=== PATIENT | male | born 1985 | race African-American/Black ===

== ENCOUNTER 2016-09-22 18:13 | Inpatient (IN) | payer SELFPAY ==
[~2016-09-22] VITALS: Ht 185.4 cm; Wt 74.4 kg
--- NOTE | 2016-09-24 08:34 | HP ---
ADMIT: 09/22/2016 RM/LOC: 426 [facility] MR#: [id number] [address] [address] JOSÉ MANUEL ASHBY [place] [address] History and Physical SEX: M AGE: 31 : 1985 DATE OF SERVICE: CHIEF COMPLAINT AND HISTORY OF PRESENT ILLNESS: José Manuel Ashby is seen in the emergency room on september 22 and eventually admitted to acute care. City call basis, he is a fairly uncooperative historian, not volunteering information during our interview. At times, simply refusing to answer the question. Apparently when he presented to the emergency room on September 22, he acknowledged feeling poorly for unspecified period of time. He tells me he has had fevers for several weeks and has experienced a 30-pounds weight loss over the last 2 months. At various times, he told me, he was from [place] or [place]. At various times, he told old me he was unemployed or worked at [employer]. Did acknowledge cough. He acknowledged hurting all over, really did not localize any specific pain. That was about the extend of any history I could obtain from him as far as symptoms go. He was first seen in the emergency room by Dr. Howell and Dr. Higginbotham. His lab work there was significant and that his phosphorus was 0.4. He also had slightly low magnesium, mildly-elevated white count but no other striking abnormalities. His chest x-ray was clear. His temp was 103.9. His vital signs were otherwise satisfactory. He was extremely agitated in the emergency room. He was given several mg of Valium. He was admitted to acute care and slept for much of the night. PAST MEDICAL HISTORY: He does not acknowledge any significant chronic health conditions. He does not acknowledge any surgeries. FAMILY HISTORY: He does not acknowledge any living family. SOCIAL HISTORY: He acknowledges as being single. He acknowledges smoking cigarettes and marijuana. Denies any other illicit substances or alcohol usage. Denies any concern for STDs on chart that he has not been sexually active in a long period of time. He acknowledges as being heterosexual. MEDICATIONS: None acknowledged. ALLERGIES: NONE KNOWN. REVIEW OF SYSTEMS: Essentially, unable to obtain any meaningful review of systems other than those things already mentioned in the HPI. PHYSICAL EXAMINATION: GENERAL: This is a 31-year-old, male, who was sleeping soundly when I entered the room. He did wake up and was alert but slow to answer questions and most of the questions answered with a simple yes or no. MOST RECENT VITAL SIGNS: Temp 101.4, pulse 96, respirations 20, BP 106/52, O2 saturation 96% on room air. He coughs frequently during the interview. HEENT: Mucous membranes are moist. No nasal discharge. Hearing is intact. Eyes sclerae nonicteric. Pupils equal. NECK: No masses or lymphadenopathy appreciated. Axilla, no lymphadenopathy. Groin, no lymphadenopathy. ADMIT: 09/22/2016 RM/LOC: 426 [facility] MR#: [id number] [address] [place] [id number] [place] [address] History and Physical SEX: M AGE: 31 : 1985 HEART: Regular rhythm. I do not hear murmurs. ABDOMEN: Clear throughout. Limited inspiration. Flat, nontender, no masses. BACK: No obvious abnormalities to inspection or palpation and nontender. GENITALIA: Unremarkable. He had specifically-mentioned scrotal pain in the emergency room but really did not single out for me but there is no scrotal tenderness. No urethral discharge. No inguinal lymphadenopathy. No sores on his genitalia. EXTREMITIES: Upper extremities, normal in appearance. Lower extremities, normal in appearance. There is no swelling in his lower legs. SKIN: I do not see any unusual rashes. PSYCH: He is withdrawn, has displayed agitation but is not agitated at this time for me. I do have some additional laboratories back since the bedside interview. His initial phosphorus which was low now is normal at 2.8. Repeat magnesium which was low at 2.3. His CRP is 14.2. HIV screen negative. Differential on his white cell count 54 segs, 4 bands, 32 lymphocytes, 9 monocytes, and 20 eosinophilic. Parathyroid hormone level was normal. His viral respiratory panel was positive for parainfluenza 4. ASSESSMENT: 1. Acute febrile upper respiratory illness, probably viral source. No radiographic evidence of pneumonia. 2. Reported fevers and weight loss over the last several weeks. DISCUSSION: Seeing the validity of the patient's story, we will get Infectious Disease involved. Dr. Yost has weighed on the case, has recommended tests for tuberculosis, I certainly concur with that and she has recommended CT scans of the chest, abdomen, and pelvis, and I certainly concur with that. I concur with the current broad-spectrum antibiotic coverage depending on blood culture results. We will follow for any general medical needs with Dr. Yost. Papo Lawler MD/ bg JOB #: [id number] CC: Papo Lawler, Attending Physician Papo Lawler, Family Physician
--- NOTE | 2016-09-25 08:29 | CO ---
ADMIT: 09/22/2016 RM/LOC: 426 [facility] MR#: [id number] [address] [address] [place] [address] Consultation SEX: M AGE: 31 : 1985 DATE OF CONSULTATION: 09/24/2016 ATTENDING PHYSICIAN: Papo Lawler CONSULTING PHYSICIAN: Daron Reeves MD, [facility] REASON FOR REFERRAL: Pulmonary infiltrates. HISTORY OF PRESENT ILLNESS: Mr. Ashby is a 31-year-old male, who presents with apparently a two-month history of cough, weight loss and fever. He is somewhat vague with his history, it is outlined on H and P. He states the cough is yellow sputum, he does have some hemoptysis with this. He is a smoker. He denies any other occupational environmental exposures at the current time. He has been consulted by ID. He has been placed on antibiotics of vancomycin and Zosyn. He was given Levaquin on 09/22/2016, but this has been stopped from now. He has no known history of TB exposure. His HIV was negative. He has chest pain with coughing. He has no other complaints. When I asked him about his caloric intake, he said he has been working, going up, running around so much, he has had time to eat. He has no other new complaints at the current time. PAST MEDICAL HISTORY: Essentially unremarkable. His respiratory viral screen was positive for parainfluenza. REVIEW OF SYSTEMS: He denies any complaints other than mentioned above. CURRENT MEDICATIONS: 1. Habitrol. 2. Vancomycin. 3. Zosyn. 4. He was on Levaquin as mentioned one dose. PHYSICAL EXAMINATION: VITAL SIGNS: T-max was 101.4 last p.m., currently 100.3; pulse 77, respirations 16, blood pressure 124/66, O2 sats 98%. GENERAL: He is awake, oriented, in no apparent distress. HEENT: Sclerae nonicteric. Pupils are reactive. NECK: Supple. LUNGS: Crackles bibasilar. CV: Regular rate without murmurs, rubs, or gallops. ABDOMEN: Soft. EXTREMITIES: No cyanosis, clubbing, or edema. SKIN: Without acute lesions. LABORATORY AND X-RAY DATA: CT scan of the chest shows right lower lobe dense consolidation with posterior costophrenic angle nearly masslike consolidation, left diaphragm somewhat nodular in appearance, process most involved in right lower lobes although minimal patchy involvement in right middle lobe, 14.5 mm right hilar node. Electrolytes normal. White count 9.5, platelets are 104, hemoglobin is slightly low at 12.4, normal MCV. Urine histo antigens are ADMIT: 09/22/2016 RM/LOC: 426 [facility] MR#: [id number] [address] [address] [place] [address] Consultation SEX: M AGE: 31 : 1985 pending. Procalcitonin 0.17. TB-interferon is pending. IMPRESSION: 1. Pulmonary infiltrates. 2. Unintentional weight loss. 3. Thrombocytopenia. 4. Parainfluenza infection. RECOMMENDATIONS/DISCUSSION: ID is managing antibiotics, we will defer to them. I would get a urine antigen for Legionella. The patient has certainly some risk factors for TB exposure, although this would be an atypical presentation for this in the lower lobes. I would wait for three negative sputum's for AFB smear and culture, await his fungal cultures, and see if he clinically improves on his current antibiotics. If he does not, then he may need a bronchoscopy in the future. Again, we will await those above-mentioned tests. He may need a bronchoscopy in the future if he does not improve or there is no diagnosis readily apparent. But again, I would wait until the three AFBs are back and negative. Thank you for the consultation. Daron Reeves MD, FCCP/ modl JOB #: [id number] CC: Papo Lawler, Attending Physician Papo Lawler, Family Physician
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
--- NOTE | 2016-09-30 14:58 | CO ---
ADMIT: 09/22/2016 RM/LOC: 419 [facility] MR#: [id number] [address] [address] JOSÉ MANUEL ASHBY [facility], [place] [id number] Consultation SEX: M AGE: 31 : 1985 DATE OF CONSULTATION: 09/23/2016 ATTENDING PHYSICIAN: Papo Lawler CONSULTING PHYSICIAN: Myesha Yost MD REASON FOR CONSULT: Fever and weight loss. Thank you Dr. Lawler for the consult and involving me in this patient's care. HISTORY OF PRESENT ILLNESS: Mr. Ashby is a 31-year-old man who presented to the ER yesterday with fever, chills, productive cough with yellow and white sputum since last 2 months. He also reports 30 pounds weight loss since last 2 months. He is originally from [place] and currently residing at [facility]. He is a very poor historian and refusing physical exam and refusing to talk during the encounter. Per the notes, he was very agitated in the ER as well and said he came here as he could not find other hospital. At present, he complains of cough and he was noted to have fever of 103.9 in the ER. His labs revealed hypophosphatemia and hypomagnesemia which improved after replacement. HIV screen was negative. PAST MEDICAL HISTORY: Denies any medical problems. SOCIAL HISTORY: He smokes 5-6 cigarettes every day. Denies any alcohol use and smokes marijuana. He does not work. FAMILY HISTORY: Unable to obtain as patient is uncooperative. REVIEW OF SYSTEMS: Ten-point review of systems could not be obtained as patient is uncooperative and refusing to talk. PHYSICAL EXAMINATION: VITAL SIGNS: Current temperature 101.4, T-max 103.9, heart rate 96, respirations 20, blood pressure 106/52, and 96% on room air. GENERAL: No acute distress. HEENT: Head, normocephalic and atraumatic. Extraocular movements intact. The patient is refusing physical exam. NEUROLOGIC: Awake and alert. LABORATORY DATA: His CBC today shows white count of 9.5, hemoglobin 12.4, and platelets of 104, ESR is 36. His respiratory viral panel came back positive for parainfluenza 4. Blood cultures are no growth to date. Urinalysis is negative. Chest x-ray showed no acute disease. ASSESSMENT AND PLAN: 1. Fever/productive cough/weight loss. His chest x-ray was negative. Given his symptoms, I would like to rule out histoplasmosis and tuberculosis. I will check urine histoplasma antigen and TB QuantiFERON test. We will ADMIT: 09/22/2016 RM/LOC: 419 [facility] MR#: [id number] [address] [place] [phone] [place] [address] Consultation SEX: M AGE: 31 : 1985 also check a sputum for routine and AFB smear and culture. Given his significant weight loss in 2 months, I would like to do CT scan of the chest, abdomen, and pelvis with contrast to rule out any underlying malignancy. He has persistent fevers since admission. I will empirically start him on antibiotics. I will start him on Zosyn and vancomycin for now. He does not have any obvious source of infection per his labs. I cannot identify any localizing signs of infection as the patient is refusing physical exam at this time and is very uncooperative. Given his high risk behavior, homelessness, and history of incarceration, I will also check hepatitis C antibody. 2. Tobacco use. Thank you for the consult. I will continue to follow the patient. Myesha Yost MD/ bg JOB #: [id number] CC: Papo Lawler, Attending Physician Papo Lawler, Family Physician
[2016-09-30] MEDS ORDERED: REMERON DPS30 MG PO (20:48)
[2016-09-30] MEDS ORDERED: VITAMIN D50000 UNI1 PO (20:49)
[2016-09-30] MEDS ORDERED: ZITHROMAX500 MG PO (20:49)
[2016-09-30] MEDS ORDERED: NICODERM CQ1 EACH TP (20:49)
[2016-09-30] MEDS ORDERED: TYLENOL DPS325 MG PO (20:50)
--- NOTE | 2016-10-01 07:39 | ER ---
ADMIT: 09/22/2016 RM/LOC: 419 [facility] MR#: [id number] [address] [address] [place] [address] Emergency Room Report SEX: M AGE: 31 : 1985 DATE: 09/22/2016 ADDENDUM: The patient was checked out to me by Dr. Higginbotham with results of his laboratory workup pending. He did have a sepsis routine done. His white count was 11.7, hemoglobin is 13.6, platelets 101. Chemistries are unremarkable other than a slightly low potassium at 3.6, a phosphorus of 0.4. His creatinine was normal, lactic acid was 1.4, procalcitonin 0.17, INR is 1.23, and tox screen is positive for cannabis. Urinalysis showed 1+ protein and 1+ ketones, otherwise unremarkable. His EKG showed sinus tachycardia, rate of 122. His chest x-ray was unremarkable. The patient did require multiple doses of Ativan and he did calm down with that. For his significant hypophosphatemia, he was given 30 millimoles of potassium phosphate which was started in the ER to run over the next 4 hours. He was also given magnesium 2 g IV and Tylenol 1 g p.o. for his fever. Additionally, we will be starting Levaquin 750 mg IV on the patient and he will be admitted, and I spoke to Dr. Lawler, who will be admitting the patient. He is admitted in slightly improved condition with a diagnosis of: 1. Fever. 2. Hypophosphatemia. 3. Hypomagnesemia. Chirag Howell MD/ bg JOB #: [id number] CC: Papo Lawler MD, Attending Physician Papo Lawler MD, Family Physician
--- NOTE | 2016-10-07 19:31 | DS ---
ADMIT: 09/26/2016 RM/LOC: 426 [facility] MR#: [id number] 2620 [facility] [address] [place] [phone] JOSÉ MANUEL MCINTYRE [address] [place] [address] General Discharge Summary SEX: M AGE: 31 : 1985 ADMISSION DATE: 09/26/2016 DISCHARGE DATE: 09/30/2016 FINAL DIAGNOSES: 1. Acute atypical pneumonia. 2. Parainfluenza infection, possible source of #1 versus other causes pneumonia. 3. Depression. 4. Weight loss. 5. Vitamin D deficiency. 6. Smoker. 7. Social issues, the patient is homeless. NARRATIVE: Discharge activities took approximately 35 minutes. This is a City Call admit, presenting to the emergency room on September 22. See history and physical exam for more complete details. He was a limited historian on presentation, but he had been experiencing fevers for several weeks and a 30- pound weight loss for over the last 2 months. 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. In the emergency room, he was obviously ill with a fever of 103.9. No evidence of pneumonia on his chest x- ray, but other significant laboratory abnormalities including a phosphorus is 0.4, slightly low magnesium, mildly elevated white cell count. He was described as very agitated in the emergency room, was given Valium to treat that. He denies smoking. Denied any other illicit substances. PHYSICAL EXAMINATION: GENERAL: Initial exam revealed a very quiet 31-year- old male. VITAL SIGNS: His temp at the bedside 101.4, pulse 96, respirations 20, BP 106/52, and O2 96%. He had severe recurrent cough during the interview. CARDIORESPIRATORY: Unremarkable on admission. ABDOMEN: Nontender. LABORATORY DATA: Really no other significant findings on his presentation. A repeat phosphorus was 2.8 after some supplementation given in the emergency room. CRP was 14.2. HIV screen negative. He had a normal parathyroid hormone level. His respiratory viral panel was positive for parainfluenza. Calcium level was normal. Unfortunately, the laboratory summary is not yet included in the database. While in the hospital, he was screened for Legionella, histoplasmosis, and HIV p24 antigen. He had sputums for atypical mycobacteria. He had blood cultures and these all came back essentially negative. CT of the chest, abdomen, and pelvis was performed on 09/23 and the main findings were some bibasilar infiltrates, somewhat nodular appearance of the infiltrate. Fungal granulomatous etiologies not excluded with clinical correlation is suggested. CT of abdomen and pelvis were negative. A repeat CT scan of the chest on September 29 read as patchy interstitial markings in both lung bases. Overall findings similar to the prior study. Also showed that his QuantiFERON gold ADMIT: 09/26/2016 RM/LOC: 426 [facility] MR#: [id number] [address] [place] [id number] JOSÉ MANUEL MCINTYRE [address] [place] [address] General Discharge Summary SEX: M AGE: 31 : 1985 test for TB was negative. The patient was admitted to acute care. We will request Infectious Disease to see the patient. Previously mentioned studies were obtained. Pulmonology also saw the patient consultation as well as a Telehealth Psych consult. He was initially treated with broad-spectrum antibiotics, pending results of tests. He was kept in isolation due to concerns that he could have active tuberculosis, but he was released from isolation when those tests came back negative. He did clinically improve over the next week. His temps did come down. His cough improved, but did not resolve. Initial IV were Zosyn and vancomycin. Later Zithromax was ordered. Social work was involved in his case since he had no insurance and was essentially homeless and they helped him with some of his needs. His vitamin D level came back low and he was given vitamin D 50,000 units orally. Psych doctor recommended treating his depression with Remeron, which was instituted on September 30[facility] concur he was stable for dismissal. He would have outpatient followup with Pulmonary in 2-3 weeks. Outpatient followup with Infectious Disease in 2 weeks. Infectious Disease recommended he need a followup CT of the chest in 4-6 weeks. He will follow up in our office on October 07. MEDICATIONS ON DISMISSAL: 1. Remeron 30 mg at bedtime. 2. Vitamin D 50,000 units weekly for 8 weeks. 3. Zithromax 500 mg daily for 3 additional days. 4. [id number] Habitrol patch for smoking cessation. 5. Tylenol as needed for fever. 6. Regular diet. Papo Lawler MD/ bg JOB #: [id number] CC: Papo Lawler MD, Attending Physician Papo Lawler MD, Family Physician
--- NOTE | 2016-10-22 21:25 | ER ---
ADMIT: 09/22/2016 RM/LOC: [address] [facility] MR#: [id number] [id number] [place] [address] Emergency Room Report SEX: M AGE: 31 : 1985 DATE: 09/22/2016 HISTORY OF PRESENT ILLNESS: A 31-year-old comes to the emergency department with fever, chills, cough, scrotum pain, abdominal pain. Please note, this patient appears agitated, angry with an unclear history when I asked why he was here, he mentioned the above complaints and then stated he is from [place] and could not find a hospital there that is why he came to this hospital. As mentioned, he is agitated and angry. Refused to provide anymore review of systems except that his scrotum hurt, his abdomen hurt, and he was coughing. PAST MEDICAL HISTORY: Denies any past medical history. SOCIAL HISTORY: Admits to smoking marijuana. Denies any other illicit drug use. Denies alcohol use. He states he smokes cigarettes occasionally. PHYSICAL EXAMINATION: GENERAL: Reveals a young, black male who is agitated and angry. HEENT: Normocephalic, atraumatic. Pupils were equal and reactive. NOSE: Normal. Airway was intact. LUNGS: Had rhonchi at the bases bilaterally. CARDIOVASCULAR: Tachycardia, but no murmurs, rubs, or gallops. ABDOMEN: Tender suprapubically. EXTREMITIES: Unremarkable. EQUIPMENT OPERATOR/LABORER/SUPERVISOR: No focal findings. PLAN: Sepsis workup is ordered. The remainder of the labs and studies will be sent over to Dr. Howell. Demond Higginbotham MD/ bg JOB #: [id number] CC: Papo Lawler MD, Attending Physician Papo Lawler MD, Family Physician
== END 2016-09-30 13:00 | disposition home or self-care (01) | DRG 865 ==
LOC: ER 18:13 → 4PCU 20:50
PROVIDERS: ADMIT Family Medicine
DX: B34.8 Other viral infections of unspecified site (principal); J18.9 Pneumonia, unspecified organism; D69.6 Thrombocytopenia, unspecified; E83.39 Other disorders of phosphorus metabolism; E83.42 Hypomagnesemia; F12.90 Cannabis use, unspecified, uncomplicated; R63.4 Abnormal weight loss; F17.210 Nicotine dependence, cigarettes, uncomplicated; F43.21 Adjustment disorder with depressed mood; G47.00 Insomnia, unspecified; E55.9 Vitamin D deficiency, unspecified; Z59.0 Homelessness